=== PATIENT | male | born 1975 | race Caucasian/White ===

== ENCOUNTER 2020-09-18 09:38 | Outpatient (CLI) | payer BC, SELFPAY ==
--- NOTE | 2020-09-18 09:54 | NM_ITS ---
WS: [id number] NUCLEAR MEDICINE HIDA SCAN WITH GALLBLADDER EJECTION FRACTION HISTORY: ELEVATED LIPASE/GERD/ RUQ ABD PAIN COMPARISON: None available. TECHNIQUE: The patient was intravenously injected with 7.8 mCi of TC99m Mebrofenin. Immediate imaging over the right upper quadrant was followed by 5 minute image and additional images for a total of 60 minutes. Normal uptake of radiotracer throughout the liver. Activity identified in the gallbladder at 15 minutes and well distended by 60 minutes. Activity in the proximal small bowel was seen by 5 minutes. Good washout of the radiotracer from the liver by 60 minutes. The patient then drank 8 ounces of Ensure Plus. Ejection fraction at 60 minutes was 80%. Normal GB ej ection fraction is 35-75%. Post fatty meal symptoms: Mild nausea. NM/NM hepatobiliary w phar* [id number] IMPRESSION: 1. Normal HIDA scan. 2. Normal gallbladder ejection fraction.
== END 2020-09-18 09:39 | disposition home or self-care (01) ==
LOC: RAD 09:47
PROVIDERS: Visit Provider Nurse Practitioner Family
DX: R74.8 Abnormal levels of other serum enzymes (principal); R10.11 Right upper quadrant pain; K21.9 Gastro-esophageal reflux disease without esophagitis
CPT/HCPCS: 78227; A9537

== ENCOUNTER 2023-12-01 12:30 | Outpatient (CLI) | payer BC, SELFPAY ==
--- NOTE | 2023-12-01 12:36 | XRR_ITS ---
PROCEDURE INFORMATION: Exam: XR Chest Exam date and time: 12/01/2023 12:56 PM Age: 48 years old Clinical indication: Other: Hypercalcemia TECHNIQUE: Imaging protocol: Radiologic exam of the chest. Views: 2 views. COMPARISON: NM hepatobiliary w phar* [id number] 09/18/2020 9:54 AM FINDINGS: Lungs: Unremarkable. No consolidation or mass. Pleural spaces: Unremarkable. No pleural effusion. No pneumothorax. Heart/Mediastinum: Unremarkable. No cardiomegaly. Bones/joints: Unremarkable. XR/XR chest 2V* [id number] IMPRESSION: No acute findings.
== END 2023-12-01 12:31 | disposition home or self-care (01) ==
LOC: RAD 12:31
PROVIDERS: PCP Nurse Practitioner Family; Visit Provider Nurse Practitioner Family
DX: E83.52 Hypercalcemia (principal)
CPT/HCPCS: 71046

== ENCOUNTER 2025-02-19 16:26 | Emergency (ER) | payer BC, SELFPAY ==
[2025-02-19 16:31] VITALS: BP 153/94; PULSE 91; RESP 16; TEMP 36.7; O2SAT 97; BMI 31.4
--- NOTE | 2025-02-19 16:33 | ECG_ITS ---
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 Measurements Intervals [place] Rate: 95 P: 4 [place]: 126 QRS: 26 QRSD: 80 T: 33 QT: 330 QTc: 417 Interpretive Statements SINUS RHYTHM NONSPECIFIC T-WAVE ABNORMALITY No previous ECG available for comparison Electronically Signed On 02-19-2025 22:12:19 CDT by Khadar Tanner M.D. [email or web address]
--- NOTE | 2025-02-19 16:58 | XRR_ITS ---
PROCEDURE INFORMATION: Exam: XR Chest Exam date and time: 02/19/2025 5:03 PM Age: 49 years old Clinical indication: Shortness of breath; Additional info: SOB TECHNIQUE: Imaging protocol: Radiologic exam of the chest. Views: 1 view. COMPARISON: CR XR chest 2V* [id number] 12/01/2023 12:56 PM FINDINGS: Lungs: Unremarkable. No consolidation. Pleural spaces: Unremarkable. No pleural effusion. No pneumothorax. Heart/Mediastinum: Unremarkable. No cardiomegaly. Bones/joints: Unremarkable. XR/XR chest 1V portable [id number] IMPRESSION: No acute findings.
[2025-02-19 17:52] VITALS: BP 147/112; PULSE 84; RESP 16; O2SAT 96
--- NOTE | 2025-02-19 17:55 | W.ED.SOB ---
HPI - SOB/Dyspnea General: Chief Complaint: Shortness of Breath/Dyspnea Stated Complaint: and EKG(sent by [facility]) Time Seen by Provider: 02/19/25 17:41 History of Present Illness: HPI Narrative: 49-year-old male sent in by his primary care provider. He went to follow-up with his primary care provider because he has had over some times of increasing shortness of breath with exertion and he is not very active. He has some underlying diet may use is not very controlled. And occasionally he will get some numbness in his right arm. When patient presented to the primary care office he had an EKG which I seeing that shows normal sinus rhythm with likely some repolarization variant. Patient was sent to the ER with concerns. Upon arrival to the ER patient has no significant complaints besides his chronic complaints. Associated symptoms: Deny abdominal pain, fever(s), nausea or vomiting Related Data Allergies Allergy/AdvReac Type Severity Reaction Status Date / Time No Known Allergies Allergy Verified 02/19/25 16:34 Review of Systems Const: Denies: fever(s) or chills Card: Reports: dyspnea on exertion Resp: Denies: productive cough, non-productive cough or wheezing GI: Denies: abdominal pain, nausea or vomiting Neuro: Reports: other (Please see HPI) Physical Exam Const: COMMON NORMALS: no acute distress, patient oriented x3 and alert Resp: COMMON NORMALS: normal respiratory effort and clear to auscultation bilaterally AUSCULTATION: clear to auscultation bilaterally Cardio: COMMON NORMALS: regular rate and regular rhythm RATE: regular rate RHYTHM: regular rhythm Neuro: COMMON NORMALS: patient oriented x3, moves all extremities and no focal motor deficits SENSORIUM/ORIENTATION: Yes alert Psych: COMMON NORMALS: Normal thought process present, normal affect and speech normal SPEECH: Yes normal speech THOUGHT PROCESS: Normal thought process present Skin: COMMON NORMALS: no rashes or lesions noted and turgor normal GENERAL SKIN EXAM: no rashes or lesions noted and turgor normal Course Vital Signs: Vital signs: Vital Signs Temperature 98.0 F 02/19/25 16:31 Pulse Rate 82 02/19/25 18:44 Respiratory Rate 16 02/19/25 18:44 Blood Pressure 128/89 02/19/25 18:44 Pulse Oximetry 93 02/19/25 18:44 Oxygen Delivery Me thod Room Air 02/19/25 16:31 MDM - SOB/Dyspnea Medical Decision Making Patient's diagnostic studies were ordered and reviewed. Patient's labs show no significant acute concerning findings. Patient's EKG shows normal sinus rhythm with some nonspecific T wave abnormalities but no acute ST changes or other noted concerning changes. Patient with a negative troponin with symptoms been going on for some time. Patient with a negative chest x-ray. Patient's physical exam shows no concerning findings. Discussed need to follow-up with his primary care provider. I did recommend he consider a stress test. Patient was stable and discharged home Lab Data 02/19/25 17:30 02/19/25 17:30 Labs/Radiology: Radiology Impressions Chest X-Ray 02/19/25 16:58 IMPRESSION: No acute findings. Laboratory Results WBC 4.81 10^3/uL (3.29-11.43) 02/19/25 17:30 RBC 5.68 10^6/uL (3.85-5.65) H 02/19/25 17:30 Hgb 15.40 g/dL (11.27-16.99) 02/19/25 17:30 Hct 46.8 % (37-53) 02/19/25 17:30 MCV 82.4 fl (82-101) 02/19/25 17:30 MCH 27.1 pg (27-33) 02/19/25 17:30 MCHC 32.9 g/dL (30-55) 02/19/25 17:30 RDW 13.1 % (12.1-15.1) 02/19/25 17:30 Plt Count 150 10^3/cmm (157-399) L 02/19/25 17:30 MPV 10.7 fL (7.4-10.4) H 02/19/25 17:30 Neut % (Auto) 56.3 % 02/19/25 17:30 Lymph % (Auto) 29.5 % 02/19/25 17:30 [place] % (Auto) 11.9 % 02/19/25 17:30 Eos % (Auto) 1.5 % 02/19/25 17:30 Baso % (Auto) 0.4 % 02/19/25 17:30 Neut # (Auto) 2.71 10^3/uL (1.8-7.7) 02/19/25 17:30 Lymph # (Auto) 1.4 10^3/uL (0.8-4.8) 02/19/25 17:30 [place] # (Auto) 0.6 10^3/uL (0.2-0.9) 02/19/25 17:30 Eos # (Auto) 0.1 10^3/uL (0.0-0.8) 02/19/25 17:30 Baso # (Auto) 0.0 10^3/uL (0.0-0.1) 02/19/25 17:30 Nucleated RBC % (auto) 0 % 02/19/25 17:30 Nucleated RBCs # 0.0 /100WBC 02/19/25 17:30 Sodium 136 mmol/L (136-145) 02/19/25 17:30 Potassium 4.3 mmol/L (3.5-5.1) 02/19/25 17:30 Chloride 99 mmol/L (98-107) 02/19/25 17:30 Carbon Dioxide 24 mmol/L (22-29) 02/19/25 17:30 Anion Gap 17.3 (5-19) 02/19/25 17:30 BUN 16 mg/dL (6-20) 02/19/25 17:30 Creatinine 0.7 mg/dL (0.7-1.2) 02/19/25 17:30 GFR Calculation 119.4 mL/min (90-130) 02/19/25 17:30 Glucose 263 mg/dL (65-115) H 02/19/25 17:30 Calculated Osmolality 292 mOsm/kg (285-295) 02/19/25 17:30 Calcium 10.5 mg/dL (8.5-10.5) 02/19/25 17:30 Total Bilirubin 0.4 mg/dL (0.15-1.2) 02/19/25 17:30 AST 17 U/L (0-40) 02/19/25 17:30 ALT 25 U/L (0-41) 02/19/25 17:30 Alkaline Phosphatase 112 U/L (40-130) 02/19/25 17:30 Troponin T Baseline < 6 ng/L (0-15) 02/19/25 17:30 Total Protein 7.8 g/dL (6.6-8.7) 02/19/25 17:30 Albumin 4.6 g/dL (3.5-5.2) 02/19/25 17:30 Globulin 3.2 g/dL (1.3-4.6) 02/19/25 17:30 All radiology interpretation(s) finalized by discharge Discharge Plan Discharge Patient Disposition: Home Clinical Impression: Exertional shortness of breath Condition: Stable Discharge Orders: Discharge ED (Routine); Ordered 02/19/25 Ordered By: Porfirio Madrid Referrals: Peggy Dale [Primary Care Provider, [facility]] Discharge Diet: Usual diet Discharge Activity: Increase activity as tolerated Patient Instructions: Dyspnea (ED), Opioid Safety, Pain Management, Exercise Walking Activity Restrictions/Additional Instructions: Please follow with your primary care provider for further evaluation. Please consider possible stress test after discussing with your primary care provider. Recommend you start an exercise program. There are multiple resources out there that may help you including [employer] along with the resources that have guided low intensity programs that you may start after being cleared by your primary care provider. Print Language: Cypriot Coding Level of Care Code ED Sandblaster Supervisor for Davi Ramirez
[2025-02-19 17:56] LABS: Basophils % 0.4 %; Eosinophils # 0.1 10^3/uL (0.0-0.8); Eosinophils % 1.5 %; Hematocrit 46.8 % (37-53); Lymphocytes # 1.4 10^3/uL (0.8-4.8); Lymphocytes % 29.5 %; Mean Corpuscular HGB Conc 32.9 g/dL (30-55); Mean Corpuscular Hemoglobin 27.1 pg (27-33); Mean Corpuscular Volume 82.4 fl (82-101); Mean Platelet Volume 10.7 fL (7.4-10.4); Monocytes # 0.6 10^3/uL (0.2-0.9); Monocytes % 11.9 %; Neutrophils # 2.71 10^3/uL (1.8-7.7); Neutrophils % 56.3 %; Nucleated Red Blood Cells % 0 %; Platelet Count 150 10^3/cmm (157-399); Red Blood Count 5.68 10^6/uL (3.85-5.65); Red Cell Distribution Width 13.1 % (12.1-15.1); White Blood Count 4.81 10^3/uL (3.29-11.43)
[2025-02-19 18:17] LABS: Troponin(5th) Baseline < 6 ng/L (0-15)
[2025-02-19 18:20] LABS: Alanine Aminotransferase 25 U/L (0-41); Albumin Level 4.6 g/dL (3.5-5.2); Alkaline Phosphatase 112 U/L (40-130); Anion Gap 17.3 (5-19); Aspartate Amino Transferase 17 U/L (0-40); Blood Urea Nitrogen 16 mg/dL (6-20); Calcium 10.5 mg/dL (8.5-10.5); Carbon Dioxide 24 mmol/L (22-29); Chloride 99 mmol/L (98-107); Creatinine Clr Calc Pharmacy 158.3093; Globulin 3.2 g/dL (1.3-4.6); Glomerular Filtration Rate 119.4 mL/min (90-130); Glucose 263 mg/dL (65-115); Osmolality Calculated 292 mOsm/kg (285-295); Potassium 4.3 mmol/L (3.5-5.1); Sodium 136 mmol/L (136-145); Total Bilirubin 0.4 mg/dL (0.15-1.2); Total Protein 7.8 g/dL (6.6-8.7)
[2025-02-19 18:44] VITALS: BP 128/89; PULSE 82; RESP 16; O2SAT 93
[2025-02-19 19:06] VITALS: BP 134/93; PULSE 82; RESP 16; O2SAT 97
[2025-02-19 19:30] LABS: Troponin 5 2HR < 6.0 ng/L (0-15); Troponin 5 2HR Delta 0 ABS# (0-10)
== END 2025-02-19 19:07 | disposition home or self-care (01) ==
PROVIDERS: Nurse Practitioner; Emergency Provider Student in an Organized Health Care Education/Training Program; PCP Nurse Practitioner Family
DX: R06.02 Shortness of breath (principal); R20.0 Anesthesia of skin
CPT/HCPCS: 36415; 71045; 80053; 84484; 85025; 93005; 99285